=== PATIENT | female | born 1940 | race Caucasian/White ===

== ENCOUNTER 2017-04-02 11:56 | Inpatient (IN) | payer OTHER ==
--- NOTE | 2017-04-02 12:21 | PDOC ---
History of Present Illness - General Chief Complaint: Shortness of Breath Stated Complaint: NEAR SYNCOPE, BLOOD PRESSURE PROBLEM Time Seen by Provider: 04/02/17 12:21 - History of Present Illness Initial Comments: 04/02/17 13:55 Ms. Martinez is a 76 yo female w/ pmh of HTN and HLD who presents complaining of a 2 month history of shortness of breath on exertion. Per daughter who is with her this has been an ongoing process for which she was recently discharged from [facility]. Her daughter brought her to [facility] for a "second opinion. " The patient denies chest pain, headache and dizziness. Denies fever, chills, nausea, vomit, diarrhea and constipation. Denies dysuria, frequency, urgency and hematuria. Allergies: NKDA Past History - Past Medical History Allergies/Adverse Reactions: Allergies Allergy/AdvReac Type Severity Reaction Status Date / Time No Known Allergies Allergy Verified 04/02/17 11:57 Home Medications: Ambulatory Orders Carvedilol 12.5 mg PO DAILY 04/02/17 Furosemide [Lasix] 40 mg PO DAILY 04/02/17 Lisinopril [Zestril] 2.5 mg PO DAILY 04/02/17 Methimazole 5 mg PO DAILY 04/02/17 Mirtazapine [Remeron -] 15 mg PO DAILY 04/02/17 Omeprazole 20 mg PO DAILY 04/02/17 COPD: No HTN: Yes Thyroid Disease: Yes (HYPER) - Suicide/Smoking/Psychosocial Hx Smoking History: Never smoked Have you smoked in the past 12 months: No Information on smoking cessation initiated: No Hx Alcohol Use: No Drug/Substance Use Hx: No Substance Use Type: None *Physical Exam - Vital Signs Last Vital Signs Temp Pulse Resp BP Pulse Ox 98.3 F 86 18 145/102 100 04/02/17 11:57 04/02/17 11:57 04/02/17 11:57 04/02/17 11:57 04/02/17 11:57 ED Treatment Course - LABORATORY CBC & Chemistry Diagram: 04/02/17 13:05 04/02/17 13:05 Medical Decision Making - Medical Decision Making 04/02/17 17:05 Ms. Martinez is a 76 yo female w/ pmh as described who presents for evaluation for dyspnea on exertion. EKG noted afib - patient unaware of cardiac status; will admit for tele -obs presumed new onset afib evaluation. 04/02/17 17:11 CXR noted clear on wet read by radiology. Lovenox given for inpatient anticoagulation. 04/02/17 17:39 Patient admitted for further evaluation to hospitalist team. 04/02/17 18:47 *DC/Admit/Observation/Transfer Diagnosis at time of Disposition: New onset a-fib - Discharge Dispostion Admit: Yes - Referrals - Patient Instructions - Post Discharge Activity
--- NOTE | 2017-04-02 12:40 | PDOC ---
Attending Attestation - Resident Resident Name: OrionjyotsnamaximRavi - ED Attending Attestation I have performed the following: I have examined & evaluated the patient, The case was reviewed & discussed with the resident, I agree w/resident's findings & plan, Exceptions are as noted - HPI HPI: 04/02/17 13:58 76y F hx of htn, hl, thyroid disease, ?dementia, asthma, presents with complaint of sob. was recently dc from [facility] for sob. Daugther states she found her mother hunched over the wall with sob and brought her here for evaulation. The patient denies any complaints currently however normather states her history is not reliable. she denesi any sob, cp, palpitations, n/v, dizziness/lightheadedness Pts exam is unremakable General: no acute distress, smiling Cardiac: irregularly irregular Pulm: CTA w/o wheezing abd:soft nontender Ext: no edema pts labs reviewed noted for mild elevated BNP EKG noted for afib that is rate controlled concern for new onset afib, pt is not aware of that diagnosis and is not taking any blood thinners. pt will be given lovenox 1mg/kg will admit pt for obs and cards consult - Physicial Exam PE: 04/04/17 11:13 see above - Medical Decision Making 04/04/17 11:13 see above Heart Score/ECG Review - ECG Impressions Comment:: Interpretation of EKG dated 04/02/17 15:19 rate of 71 irregularly irregular poor r wave progression nonspecific st changes imp: afib no prior ekg for comparison
[2017-04-02 13:19] LABS: BASO % 0.5 % (0-2.0); EOS % 1.7 % (0-4.5); HEMATOCRIT 34.1 % (32.4-45.2); HEMOGLOBIN 10.9 GM/dL (10.7-15.3); LYMPH % 20.7 % (8-40); MCH 27.1 pg (25.7-33.7); MEAN CELL VOLUME 84.5 fl (80-96); MEAN PLT VOLUME 9.3 fl (7.5-11.1); MONO % 7.9 % (3.8-10.2); NEUT % 69.2 % (42.8-82.8); PLATELET COUNT 208 K/MM3 (134-434); RBC 4.03 M/mm3 (3.60-5.2); WHITE BLOOD COUNT 6.3 K/mm3 (4.0-10.0)
[2017-04-02 13:28] LABS: INR 1.44 (0.82-1.09); PROTHROMBIN TIME (PATIENT) 16.3 SEC (9.98-11.88)
[2017-04-02 13:53] LABS: ALBUMIN 3.5 g/dl (3.4-5.0); ANION GAP 6 (8-16); BLOOD UREA NITROGEN 21 mg/dL (7-18); CHLORIDE 106 mmol/L (98-107); CO2 30 mmol/L (21-32); CREATININE 0.8 mg/dL (0.55-1.02); GLUCOSE,RANDOM 127 mg/dL (74-106); POTASSIUM 3.6 mmol/L (3.5-5.1); SGOT/AST 37 U/L (15-37); SGPT/ALT 52 U/L (12-78); SODIUM 142 mmol/L (136-145)
[2017-04-02 13:57] LABS: ALK PHOS 161 U/L (45-117); BILIRUBIN,TOTAL 0.6 mg/dL (0.2-1.0); N-TERMINAL BNP 3882.39 pg/ml (5-450); TOT PROT 7.4 g/dl (6.4-8.2)
--- NOTE | 2017-04-02 16:29 | EKG ---
Test Reason : Blood Pressure : / mmHG Vent. Rate : 071 BPM Atrial Rate : 394 BPM P-R Int : 000 ms QRS Dur : 074 ms QT Int : 410 ms P-R-T Axes : 000 017 -11 degrees QTc Int : 445 ms POOR DATA QUALITY, INTERPRETATION MAY BE ADVERSELY AFFECTED ATRIAL FIBRILLATION POOR R WAVE PROGRESSION ABNORMAL ECG NO PREVIOUS ECGS AVAILABLE Confirmed by MD Jacob, Prabhakar ([id number]) on 04/02/2017 4:29:26 PM Referred By: Confirmed By:Prabhakar James MD
[2017-04-02] MEDS ORDERED: ENOXAPARIN NA (PORCINE) 60 MG/0.6 ML DISP.SYRIN SQ SCH (17:15)
[2017-04-02] MEDS ORDERED: ENOXAPARIN NA (PORCINE) 60 MG/0.6 ML DISP.SYRIN SQ ONE (17:29)
--- NOTE | 2017-04-02 19:11 | HP ---
CHIEF COMPLAINT: shortness of breath PCP: HISTORY OF PRESENT ILLNESS: Patient is a 76 year old female with a significant past medical history of hypertension, hyperlipidemia, thyroid disease, dementia (as per pt daughter), anxiety and asthma. Daughter was present and provided the history. As per daughter, patient was complaining of worsening shortness of breath with physical activity. Patient was recently discharged from [facility] for shortness of breath but daughter feels that her mother continues to be short of breath and has not improved. She brings her to [facility] for a "second opinion". Daughter mike reports that her mother's gait is unsteady and she lives alone. Her mother is a fall risk and is non compliant with her home medications. On exam, patient was anxious, asking to go home. Does not want to stay in the hospital unless daughter stays with her. She denies any chest pain or shortness of breath. Her gait was unsteady when going from a sitting to standing position. ER course was notable for: (1) BNP 3880 (2) EKG noted for atril fib that is rate controlled in 80s, patient is not on any anticoagulation (3) given Lovenox 60mg x 1 in ED Recent Travel: PAST MEDICAL HISTORY: hypertension, hyperlipidemia, thyroid disease, dementia ( as per pt daughter), anxiety and asthma PAST SURGICAL HISTORY: Social History: Smoking: denies Alcohol: denies Drugs: denies Family History: Allergies No Known Allergies Allergy (Verified 04/02/17 11:57) HOME MEDICATIONS: Home Medications Medication Instructions Recorded Carvedilol 12.5 mg PO DAILY 04/02/17 Furosemide [Lasix] 40 mg PO DAILY 04/02/17 Lisinopril [Zestril] 2.5 mg PO DAILY 04/02/17 Methimazole 5 mg PO DAILY 04/02/17 Mirtazapine [Remeron -] 15 mg PO DAILY 04/02/17 Omeprazole 20 mg PO DAILY 04/02/17 REVIEW OF SYSTEMS CONSTITUTIONAL: Absent: fever, chills, diaphoresis, generalized weakness, malaise, loss of appetite, weight change HEENT: Absent: rhinorrhea, nasal congestion, throat pain, throat swelling, difficulty swallowing, mouth swelling, ear pain, eye pain, visual changes GASTROINTESTINAL: Absent: abdominal pain, abdominal distension, nausea, vomiting, diarrhea, constipation, melena, hematochezia GENITOURINARY: Absent: dysuria, frequency, urgency, hesitancy, hematuria, flank pain, genital pain MUSCULOSKELETAL: Absent: myalgia, arthralgia, joint swelling, back pain, neck pain SKIN: Absent: rash, itching, pallor HEMATOLOGIC/IMMUNOLOGIC: Absent: easy bleeding, easy bruising, lymphadenopathy, frequent infections ENDOCRINE: Absent: unexplained weight gain, unexplained weight loss, heat intolerance, cold intolerance NEUROLOGIC: Absent: headache, focal weakness or paresthesias, dizziness, unsteady gait, seizure, mental status changes, bladder or bowel incontinence PHYSICAL EXAMINATION Vital Signs - 24 hr 04/02/17 11:57 Temperature 98.3 F Pulse Rate 86 Respiratory 18 Rate Blood Pressure 145/102 O2 Sat by Pulse 100 Oximetry (%) GENERAL: Awake, alert, and fully oriented, in no acute distress. HEAD: Normal with no signs of trauma. EYES: Pupils equal, round and reactive to light, extraocular movements intact, sclera anicteric, conjunctiva clear. No lid lag. EARS, NOSE, THROAT: Ears normal, nares patent, oropharynx clear without exudates. Moist mucous membranes. NECK: Normal range of motion, supple without lymphadenopathy, JVD, or masses. LUNGS: Diminished breath sounds bilaterally HEART: afib, rate controlled 80s ABDOMEN: Soft, nontender, not distended, normoactive bowel sounds, no guarding, no rebound, no masses. No hepatomegaly or splenomegaly. MUSCULOSKELETAL: Normal range of motion at all joints. No bony deformities or tenderness. No CVA tenderness. UPPER EXTREMITIES: 2+ pulses, warm, well-perfused. No cyanosis. No clubbing. No peripheral edema. LOWER EXTREMITIES: trace edema on bilateral lower extremities NEUROLOGICAL: Unsteady gait PSYCHIATRIC: anxious, periods of agitation SKIN: Warm, dry, normal turgor, no rashes or lesions noted, normal capillary refill. Laboratory Results - last 24 hr 04/02/17 04/02/17 04/02/17 13:05 13:05 13:05 WBC 6.3 RBC 4.03 Hgb 10.9 Hct 34.1 MCV 84.5 MCH 27.1 MCHC 32.0 RDW 15.0 Plt Count 208 MPV 9.3 Neutrophils % 69.2 Lymphocytes % 20.7 Monocytes % 7.9 Eosinophils % 1.7 Basophils % 0.5 PT with INR 16.30 H INR 1.44 H Sodium 142 Potassium 3.6 Chloride 106 Carbon Dioxide 30 Anion Gap 6 L BUN 21 H Creatinine 0.8 Creat Clearance w eGFR > 60 Random Glucose 127 H Calcium 8.0 L Magnesium 2.0 Total Bilirubin 0.6 AST 37 ALT 52 Alkaline Phosphatase 161 H Creatine Kinase 68 Troponin I < 0.02 B-Natriuretic Peptide 3882.39 H Total Protein 7.4 Albumin 3.5 Blood Type Antibody Screen 04/02/17 13:05 WBC RBC Hgb Hct MCV MCH MCHC RDW Plt Count MPV Neutrophils % Lymphocytes % Monocytes % Eosinophils % Basophils % PT with INR INR Sodium Potassium Chloride Carbon Dioxide Anion Gap BUN Creatinine Creat Clearance w eGFR Random Glucose Calcium Magnesium Total Bilirubin AST ALT Alkaline Phosphatase Creatine Kinase Troponin I B-Natriuretic Peptide Total Protein Albumin Blood Type O POSITIVE Antibody Screen Negative ASSESSMENT/PLAN: Patient is a 76 year old female with a significant past medical history of hypertension, hyperlipidemia, thyroid disease, dementia (as per pt daughter), anxiety and asthma. Daughter was present and provided the history. As per daughter, patient was complaining of worsening shortness of breath with physical activity. Patient was recently discharged from [facility] for shortness of breath but daughter feels that her mother continues to be short of breath and has not improved. She brings her to [facility] for a "second opinion". Daughter mike reports that her mother's gait is unsteady and she lives alone. Her mother is a fall risk and is non compliant with her home medications. On exam, patient was anxious, asking to go home. Does not want to stay in the hospital unless daughter stays with her. She denies any chest pain or shortness of breath. Her gait was unsteady when going from a sitting to standing position. Cardiology Atrial fib, rate controlled On Coreq 12.5 BID Will anticoagulate with full dose Lovenox, with close watch on patient's ambulatory status, further anticoag as per cardiology Will consult PT No prior medical records to compare, recently reported to be at [facility] On Lasix Trop negative x 2 Echo ordered Telemonitoring Hypertension, chronic Elevated On coreq 12.5mg BID On Lisinopril Hyperlipidemia, chronic lipid panel in a.m. Endocrine Thyroid disease TSH ordered Pulmonary: Asthma, chronic In no acute exacerbation Albuterol prn Physical therapy to assess ambulatory status. SW to help coordinate safe discharge F.E.N. Fluids: tolerating PO Electrolytes: monitor Nutrition: low sodium Prophylaxis: DVT: lovenox GI: Protonix Disposition: full code Visit type - Emergency Visit Emergency Visit: Yes ED Registration Date: 04/02/17 Care time: The patient presented to the Emergency Department on the above date and was hospitalized for further evaluation of their emergent condition. - New Patient This patient is new to me today: Yes Date on this admission: 04/02/17 - Critical Care Critical Care patient: No
[2017-04-02] MEDS ORDERED: CARVEDILOL 12.5 MG TABLET (FP) PO ONE (19:52)
[2017-04-02] MEDS ORDERED: ALBUTEROL SO4 0.083% IH SOL 2.5 MG/3 ML VIAL.NEB. NEB PRN (19:56)
[2017-04-02] MEDS ORDERED: FUROSEMIDE 20 MG TABLET (FP) PO ONE (20:00)
--- NOTE | 2017-04-02 20:25 | CON.CARD ---
Consult Consult Specialty:: cardiology Reason for Consultation:: AF; CHF - History of Present Illness Chief Complaint: shortness of breath History of Present Illness: 76y woman (b. [place]), with PMHx hx of htn, hyperlipidemia, thyroid disease , ?dementia, "asthma" (never smoked), presents with complaint of sob. was recently dc from [facility] for sob. Daugther states she found her mother hunched over a wall with sob, and was brought her here for evaluation. The patient denies any complaints; currently, however, daughter states mother's history is not reliable. Pt's EKG in ER showed atrial fibrillation. Pt says that for several months shes has felt increasingly dyspneic on exertion ; this has been limiting her ability to walk; she at times also has mild chest pressure on exertion that may take minutes to subside.. She denies hx MS; ? never had a cardiac stress test; no hx coronary angiogram. - History Source History Provided By: Patient, Family Member, Medical Record - Past Medical History Cardio/Vascular: Yes: AFIB, CHF, HTN Reproductive: Yes: Postmenopausal ...: No Psych: Yes: Anxiety - Alcohol/Substance Use Hx Alcohol Use: No - Smoking History Smoking history: Never smoked Have you smoked in the past 12 months: No Home Medications - Allergies Allergies/Adverse Reactions: Allergies Allergy/AdvReac Type Severity Reaction Status Date / Time No Known Allergies Allergy Verified 04/02/17 11:57 - Home Medications Home Medications: Ambulatory Orders Carvedilol 12.5 mg PO DAILY 04/02/17 Furosemide [Lasix] 40 mg PO DAILY 04/02/17 Lisinopril [Zestril] 2.5 mg PO DAILY 04/02/17 Methimazole 5 mg PO DAILY 04/02/17 Mirtazapine [Remeron -] 15 mg PO DAILY 04/02/17 Omeprazole 20 mg PO DAILY 04/02/17 Vital Signs: Vital Signs Temperature 98.3 F 04/02/17 11:57 Pulse Rate 86 04/02/17 11:57 Respiratory Rate 18 04/02/17 11:57 Blood Pressure 145/102 04/02/17 11:57 O2 Sat by Pulse Oximetry (%) 100 04/02/17 11:57 - Other Data Labs, Other Data: CBC, BMP 04/02/17 13:05 04/02/17 13:05 INR, PTT INR 1.44 (0.82-1.09) H 04/02/17 13:05 Troponin, BNP 04/02/17 13:05 Troponin I < 0.02 B-Natriuretic Peptide 3882.39 H Troponin, BNP 04/02/17 13:05 Troponin I < 0.02 B-Natriuretic Peptide 3882.39 H Problem List - Problems (1) Hyperlipidemia Code(s): E78.5 - HYPERLIPIDEMIA, UNSPECIFIED (2) Shortness of breath Code(s): R06.02 - SHORTNESS OF BREATH (3) New onset a-fib Assessment/Plan: start carvedilol; give bid for 24 hour coverage. On lovenox 1 mg/kg BW bid. ECHO for LVEF, chamber sizes, valve status. TSH WNL. F/u BUN/Cr, electrolytes, Is and Os, daily weight. EKG in am. Code(s): I48.91 - UNSPECIFIED ATRIAL FIBRILLATION (4) Acute on chronic systolic CHF (congestive heart failure), NYHA class 2 Assessment/Plan: BNP elevated; +JVP. ECHO for LVEF, wall motion and thickness, chamber sizes, wall motion, valve status. If systolic dysfunction, use beta blockers (unless true bronchial asthma; pt says she has not been on an asthma pump for years, and was only recenty started on one when she began having dyspnea on exertion; nonsmoker). TSH. Daily weight, Is and Os, BUN/Cr, electrolytes. Code(s): I50.23 - ACUTE ON CHRONIC SYSTOLIC (CONGESTIVE) HEART FAILURE
[2017-04-03 03:10] LABS: URINE APPEARANCE SLCLOUDY; URINE BILIRUBIN NEGATIVE (NEGATIVE); URINE BLOOD NEGATIVE (NEGATIVE); URINE COLOR YELLOW; URINE GLUCOSE (UA) NEGATIVE (NEGATIVE); URINE KETONE NEGATIVE (NEGATIVE); URINE NITRITE NEGATIVE (NEGATIVE); URINE PROTEIN NEGATIVE (NEGATIVE); URINE UROBILINOGEN NEGATIVE mg/dL (0.2-1.0)
[2017-04-03] MEDS ORDERED: FUROSEMIDE 40 MG TABLET (FP) ONE (03:15)
[2017-04-03] MEDS ORDERED: CARVEDILOL 12.5 MG TABLET (FP) ONE (03:15)
[2017-04-03] MEDS: CARVEDILOL 12.5 MG TABLET (FP) PO SCH ×3 (03:18→21:37)
[2017-04-03 03:22] LABS: URINE LEUK ESTERASE 1+ (NEGATIVE)
[2017-04-03 03:28] LABS: EPI CELLS FEW /HPF (FEW); URINE BACTERIA MANY /hpf (NONE SEEN); URINE HYALINE CAST 14 /lpf; URINE MUCUS MANY
[2017-04-03 08:38] LABS: BASO % 0.4 % (0-2.0); EOS % 1.9 % (0-4.5); HEMATOCRIT 30.9 % (32.4-45.2); LYMPH % 16.6 % (8-40); MCH 27.3 pg (25.7-33.7); MCHC 32.3 g/dl (32.0-36.0); MEAN CELL VOLUME 84.6 fl (80-96); MEAN PLT VOLUME 9.2 fl (7.5-11.1); MONO % 6.6 % (3.8-10.2); NEUT % 74.5 % (42.8-82.8); PLATELET COUNT 193 K/MM3 (134-434); RBC 3.65 M/mm3 (3.60-5.2); RDW 15.6 % (11.6-15.6); WHITE BLOOD COUNT 7.4 K/mm3 (4.0-10.0)
[2017-04-03 09:30] LABS: CHLORIDE 105 mmol/L (98-107); SODIUM 142 mmol/L (136-145)
[2017-04-03 09:37] LABS: ALK PHOS 132 U/L (45-117); ANION GAP 7 (8-16); BILIRUBIN,TOTAL 0.6 mg/dL (0.2-1.0); BLOOD UREA NITROGEN 17 mg/dL (7-18); CALCIUM 7.4 mg/dL (8.5-10.1); CO2 30 mmol/L (21-32); CREATININE 0.8 mg/dL (0.55-1.02); GLUCOSE,RANDOM 137 mg/dL (74-106); MAGNESIUM 1.7 mg/dL (1.8-2.4); SGOT/AST 24 U/L (15-37); SGPT/ALT 41 U/L (12-78); TOT PROT 6.3 g/dl (6.4-8.2)
[2017-04-03 09:43] LABS: CHOLESTEROL 124 mg/dL (50-200); HDL CHOLESTEROL 52 mg/dL (40-60); LDL CHOLESTEROL (ONLY SJRH) 67 mg/dL (5-100); TRIGLYCERIDES 70 mg/dL (35-160)
[2017-04-03] MEDS ORDERED: CARVEDILOL 12.5 MG TABLET (FP) PO SCH (10:00)
--- NOTE | 2017-04-03 10:08 | PN ---
Progress Note, Physician History of Present Illness: 76y F hx of htn, hyperlipidemia, thyroid disease, ?dementia, asthma, presents with complaint of sob. [facility] Daugther states she found her mother hunched over the wall with sob and brought her here for evaluation. The patient denies any complaints currently however daughter states mother's history is not reliable. Pt's EKG in ER showed atrial fibrillation. - Current Medication List Current Medications: Active Medications Albuterol Sulfate (Ventolin 0.083% Nebulizer Soln -) 1 amp NEB Q8H PRN PRN Reason: SHORT OF BREATH/WHEEZING Carvedilol (Coreg -) 12.5 mg PO BID HIPOLITO Last Admin: 04/03/17 03:18 Dose: 12.5 mg Enoxaparin Sodium (Lovenox -) 60 mg SQ BID HIPOLITO Furosemide (Lasix -) 40 mg PO DAILY HIPOLITO Lisinopril (Prinivil) 2.5 mg PO DAILY HIPOLITO Methimazole (Tapazole -) 5 mg PO DAILY HIPOLITO Mirtazapine (Remeron -) 15 mg PO HS HIPOLITO Pantoprazole Sodium (Protonix -) 20 mg PO DAILY HIPOLITO - Objective Vital Signs: Vital Signs Temperature 97.9 F 04/03/17 08:59 Pulse Rate 82 04/03/17 08:59 Respiratory Rate 20 04/03/17 08:59 Blood Pressure 142/68 04/03/17 08:59 O2 Sat by Pulse Oximetry (%) 92 L 04/03/17 06:39 Eyes: Yes: WNL, Conjunctiva Clear, EOM Intact HENT: Yes: WNL, Atraumatic, Normocephalic Neck: Yes: WNL, Supple, Trachea Midline Cardiovascular: Yes: Pulse Irregular Respiratory: Yes: WNL, Regular, CTA Bilaterally Gastrointestinal: Yes: WNL, Normal Bowel Sounds Genitourinary: Yes: WNL Musculoskeletal: Yes: WNL Extremities: Yes: WNL Edema: No Integumentary: Yes: WNL Neurological: Yes: WNL, Alert, Oriented ...Motor Strength: WNL Psychiatric: Yes: WNL Labs: CBC, BMP 04/03/17 08:15 04/03/17 08:15 INR, PTT INR 1.44 (0.82-1.09) H 04/02/17 13:05 Assessment/Plan Problems (1) Hyperlipidemia Code(s): E78.5 - HYPERLIPIDEMIA, UNSPECIFIED (2) Shortness of breath Code(s): R06.02 - SHORTNESS OF BREATH (3) New onset a-fib Assessment/Plan: start carvedilol; give bid for 24 hour coverage. On lovenox 1 mg/kg BW bid. ECHO for LVEF, chamber sizes, valve status. TSH WNL. F/u BUN/Cr, electrolytes, Is and Os, daily weight. EKG in am. Code(s): I48.91 - UNSPECIFIED ATRIAL FIBRILLATION
[2017-04-03] MEDS: ENOXAPARIN NA (PORCINE) 60 MG/0.6 ML DISP.SYRIN SQ SCH ×2 (10:26→21:37)
[2017-04-03] MEDS: PANTOPRAZOLE 20 MG TABLET (FP) PO SCH (10:26)
[2017-04-03] MEDS: METHIMAZOLE 5 MG TABLET (FP) PO SCH (10:26)
[2017-04-03] MEDS: FUROSEMIDE 40 MG TABLET (FP) PO SCH (10:26)
[2017-04-03] MEDS: LISINOPRIL 5 MG TABLET (FP) PO SCH (10:27)
[2017-04-03 11:28] VITALS: BMI 29.2
--- NOTE | 2017-04-03 16:04 | PN ---
Physical Exam: SUBJECTIVE: Patient seen and examined in the ED. She has no acute complaint, dose not appear sob, eating lunch no issues. OBJECTIVE: Vital Signs Period Temp Pulse Resp BP Sys/[place] Pulse Ox Last 24 Hr 97.9 F-98.6 F 82-104 17-20 135-154/68-118 92-99 PE Neuro: alert, awake, oriented to self, daughter Pulm: CTAB CV: s2 s2 irregular rhythm Abd: s nt nd +bs Ext: + 1 pitting edema b/l Laboratory Results - last 24 hr 04/02/17 04/02/17 04/03/17 13:05 20:48 02:30 WBC RBC Hgb Hct MCV MCH MCHC RDW Plt Count MPV Neutrophils % Lymphocytes % Monocytes % Eosinophils % Basophils % Sodium Potassium Chloride Carbon Dioxide Anion Gap BUN Creatinine Creat Clearance w eGFR Random Glucose Calcium Magnesium Total Bilirubin AST ALT Alkaline Phosphatase Troponin I < 0.02 Total Protein Albumin Triglycerides Cholesterol Total LDL Cholesterol HDL Cholesterol TSH 0.53 Urine Color Yellow Urine Appearance Slcloudy Urine pH 5.0 Ur Specific [place] 1.023 Urine Protein Negative Urine Glucose (UA) Negative Urine Ketones Negative Urine Blood Negative Urine Nitrite Negative Urine Bilirubin Negative Urine Urobilinogen Negative Ur Leukocyte Esterase 1+ H Urine WBC (Auto) 23 Urine RBC (Auto) 3 Ur Epithelial Cells Few Urine Bacteria Many Hyaline Casts 14 Urine Mucus Many 04/03/17 04/03/17 04/03/17 08:15 08:15 08:15 WBC 7.4 RBC 3.65 Hgb 10.0 L Hct 30.9 L MCV 84.6 MCH 27.3 MCHC 32.3 RDW 15.6 Plt Count 193 MPV 9.2 Neutrophils % 74.5 Lymphocytes % 16.6 Monocytes % 6.6 Eosinophils % 1.9 Basophils % 0.4 Sodium 142 Potassium 3.0 L Chloride 105 Carbon Dioxide 30 Anion Gap 7 L BUN 17 Creatinine 0.8 Creat Clearance w eGFR > 60 Random Glucose 137 H Calcium 7.4 L Magnesium 1.7 L Total Bilirubin 0.6 AST 24 ALT 41 Alkaline Phosphatase 132 H Troponin I Total Protein 6.3 L Albumin 3.0 L Triglycerides 70 Cholesterol 124 Total LDL Cholesterol 67 HDL Cholesterol 52 TSH Urine Color Urine Appearance Urine pH Ur Specific [place] Urine Protein Urine Glucose (UA) Urine Ketones Urine Blood Urine Nitrite Urine Bilirubin Urine Urobilinogen Ur Leukocyte Esterase Urine WBC (Auto) Urine RBC (Auto) Ur Epithelial Cells Urine Bacteria Hyaline Casts Urine Mucus Active Medications Generic Name Dose Route Start Last Admin Trade Name Freq PRN Reason Stop Dose Admin Albuterol Sulfate 1 amp 04/02/17 19:56 Ventolin 0.083% Nebulizer Soln - NEB Q8H PRN SHORT OF BREATH/WHEEZING Carvedilol 12.5 mg 04/02/17 22:00 04/03/17 10:26 Coreg - PO 12.5 mg BID HIPOLITO Administration Enoxaparin Sodium 60 mg 04/03/17 10:00 04/03/17 10:26 Lovenox - SQ 60 mg BID HIPOLITO Administration Furosemide 40 mg 04/03/17 10:00 04/03/17 10:26 Lasix - PO 40 mg DAILY HIPOLITO Administration Lisinopril 2.5 mg 04/03/17 10:00 04/03/17 10:27 Prinivil PO 2.5 mg DAILY HIPOLITO Administration Methimazole 5 mg 04/03/17 10:00 04/03/17 10:26 Tapazole - PO 5 mg DAILY HIPOLITO Administration Mirtazapine 15 mg 04/03/17 22:00 Remeron - PO HS HIPOLITO Pantoprazole Sodium 20 mg 04/03/17 10:00 04/03/17 10:26 Protonix - PO 20 mg DAILY HIPOLITO Administration Assessment: 76 year old female with pmhx of HTN, HLD, thyroid disease, dementia (as per pt daughter), anxiety and asthma admitted with worsening sob on exertion. Plan: 1. New onset A fib - Coreg 12.5mg BID - Continue tele monitoring - Lovenox 60mg BID, transition to oral per cardiology 2. Acute Systolic HF/Pulm HTN - ECHO: lv mildly dilated, lvsf mod reduced, severe TR, RVSP 40-50mmhg, mod global hypokinesis of LV, severe MR - Continue BB, JOVANNA, diuretic as listed - Consider aldactone - Defer to cardiology 3. UTI - Asymptomatic bacturia, repeat UA, send Urine cx - Start ceftriaxone 4. HTN - Lasix 40mg daily - Lisinopril 2.5mg daily 5. HLD - Lipid panel noted 6. Hypokalemia - Replete 40meq after mg infusion 7. Hypomagnesemia - Replete 1gm mg x1 8. Hyperthyroidism - TSH wnl - Methimazole 5mg daily 9. Dementia/insomnia - Remeron 15mg HS 10. DVT: on lovenox Visit type - Emergency Visit Emergency Visit: Yes ED Registration Date: 04/02/17 Care time: The patient presented to the Emergency Department on the above date and was hospitalized for further evaluation of their emergent condition. - New Patient This patient is new to me today: Yes Date on this admission: 04/03/17 - Critical Care Critical Care patient: No
[2017-04-03] MEDS ORDERED: MAGNESIUM SULF 50% (8.12 MEQ/2 ML-1 GM VIAL) IVPB ONE (16:06)
[2017-04-03] MEDS ORDERED: MAGNESIUM 1GM/D5W - 1 GM/100 ML IVPB IVPB ONE (16:15)
[2017-04-03] MEDS ORDERED: POTASSIUM CHLORIDE ORAL LIQUID 20 MEQ/15 ML PO ONE (16:15)
[2017-04-03] MEDS ORDERED: cefTRIAXone 1 GM/50 ML BAG (PRE-DOCKED) IVPB SCH (16:30)
[2017-04-03] MEDS ORDERED: MAGNESIUM SULF 50% (8.12 MEQ/2 ML-1 GM VIAL) ONE (16:45)
[2017-04-03] MEDS ORDERED: cefTRIAXone SODIUM 1 GM VIAL ONE (16:46)
[2017-04-03] MEDS ORDERED: POTASSIUM CHLORIDE ORAL LIQUID 20 MEQ/15 ML ONE (16:46)
[2017-04-03] MEDS: CEFTRIAXONE 1 G/50 ML PREMIX 50 ML IVPB SCH (18:44)
[2017-04-03 20:27] LABS: URINE APPEARANCE SLCLOUDY; URINE BILIRUBIN NEGATIVE (NEGATIVE); URINE BLOOD NEGATIVE (NEGATIVE); URINE COLOR YELLOW; URINE GLUCOSE (UA) NEGATIVE (NEGATIVE); URINE KETONE NEGATIVE (NEGATIVE); URINE LEUK ESTERASE TRACE (NEGATIVE); URINE NITRITE NEGATIVE (NEGATIVE); URINE PROTEIN NEGATIVE (NEGATIVE); URINE UROBILINOGEN NEGATIVE mg/dL (0.2-1.0)
[2017-04-03 20:32] LABS: EPI CELLS RARE /HPF (FEW); URINE BACTERIA RARE /hpf (NONE SEEN); URINE HYALINE CAST 20 /lpf; URINE MUCUS RARE
[2017-04-03] MEDS: MIRTAZAPINE 15 MG TABLET (FP) PO SCH (21:37)
[2017-04-04] MEDS: CARVEDILOL 12.5 MG TABLET (FP) PO SCH ×2 (09:17→21:51)
[2017-04-04] MEDS: LISINOPRIL 5 MG TABLET (FP) PO SCH (09:17)
[2017-04-04] MEDS: ENOXAPARIN NA (PORCINE) 60 MG/0.6 ML DISP.SYRIN SQ SCH (09:17)
[2017-04-04] MEDS: FUROSEMIDE 40 MG TABLET (FP) PO SCH (09:17)
[2017-04-04] MEDS: CEFTRIAXONE 1 G/50 ML PREMIX 50 ML IVPB SCH (09:18)
[2017-04-04] MEDS: METHIMAZOLE 5 MG TABLET (FP) PO SCH (09:18)
[2017-04-04] MEDS: PANTOPRAZOLE 20 MG TABLET (FP) PO SCH (09:18)
[2017-04-04 09:21] LABS: BASO % 0.5 % (0-2.0); EOS % 1.9 % (0-4.5); LYMPH % 27.4 % (8-40); MCH 27.3 pg (25.7-33.7); MCHC 32.2 g/dl (32.0-36.0); MEAN CELL VOLUME 84.8 fl (80-96); MEAN PLT VOLUME 9.6 fl (7.5-11.1); MONO % 7.9 % (3.8-10.2); NEUT % 62.3 % (42.8-82.8); PLATELET COUNT 194 K/MM3 (134-434); RBC 3.65 M/mm3 (3.60-5.2); RDW 15.8 % (11.6-15.6)
[2017-04-04 09:45] LABS: ANION GAP 5 (8-16); BLOOD UREA NITROGEN 20 mg/dL (7-18); CALCIUM 7.7 mg/dL (8.5-10.1); CHLORIDE 107 mmol/L (98-107); CO2 30 mmol/L (21-32); CREATININE 0.9 mg/dL (0.55-1.02); GLUCOSE,RANDOM 104 mg/dL (74-106); MAGNESIUM 2.1 mg/dL (1.8-2.4); POTASSIUM 3.4 mmol/L (3.5-5.1); SODIUM 142 mmol/L (136-145)
--- NOTE | 2017-04-04 09:49 | PN ---
Progress Note, Physician Chief Complaint: Pt alert; denies chest pain; still easily fatigued and dyspneic on mild exertion. Knows the month, but not the year. History of Present Illness: 76y woman (b. [place]),with PMHx of htn, hyperlipidemia, thyroid disease, ? dementia, asthma, presents with complaint of sob. was recently dc from [facility] for sob. Daugther states she found her mother hunched over the wall with sob and brought her here for evaluation. The patient denies any complaints currently however daughter states mother's history is not reliable. Pt's EKG in ER showed atrial fibrillation. - Current Medication List Current Medications: Active Medications Albuterol Sulfate (Ventolin 0.083% Nebulizer Soln -) 1 amp NEB Q8H PRN PRN Reason: SHORT OF BREATH/WHEEZING Carvedilol (Coreg -) 12.5 mg PO BID [facility] Last Admin: 04/04/17 09:17 Dose: 12.5 mg Enoxaparin Sodium (Lovenox -) 60 mg SQ BID [facility] Last Admin: 04/04/17 09:17 Dose: 60 mg Furosemide (Lasix -) 40 mg PO DAILY [facility] Last Admin: 04/04/17 09:17 Dose: 40 mg CEFTRIAXONE 1 G/50 ML PREMIX (Ceftriaxone 1 Gm-D5w Bag) 50 mls @ 100 mls/hr IVPB DAILY [facility] Last Admin: 04/04/17 09:18 Dose: 100 mls/hr Lisinopril (Prinivil) 2.5 mg PO DAILY [facility] Last Admin: 04/04/17 09:17 Dose: 2.5 mg Methimazole (Tapazole -) 5 mg PO DAILY [facility] Last Admin: 04/04/17 09:18 Dose: 5 mg Mirtazapine (Remeron -) 15 mg PO HS [facility] Last Admin: 04/03/17 21:37 Dose: 15 mg Pantoprazole Sodium (Protonix -) 20 mg PO DAILY [facility] Last Admin: 04/04/17 09:18 Dose: 20 mg - Objective Vital Signs: Vital Signs Temperature 98.1 F 04/04/17 02:00 Pulse Rate 98 H 04/04/17 02:00 Respiratory Rate 18 04/04/17 02:00 Blood Pressure 119/79 04/04/17 02:00 O2 Sat by Pulse Oximetry (%) 97 04/03/17 20:18 Constitutional: Yes: Calm Eyes: Yes: WNL HENT: Yes: WNL Neck: Yes: WNL Cardiovascular: Yes: Pulse Irregular Respiratory: Yes: WNL Gastrointestinal: Yes: Soft ...Rectal Exam: Yes: Deferred Genitourinary: No: Anuria Musculoskeletal: Yes: WNL Extremities: Yes: WNL Edema: Yes Edema: LLE: Trace, RLE: Trace Peripheral Pulses WNL: Yes Integumentary: Yes: WNL Neurological: Yes: Confusion Psychiatric: Yes: Other (?dementia) Labs: CBC, BMP 04/04/17 08:55 INR, PTT INR 1.44 (0.82-1.09) H 04/02/17 13:05 Problem List - Problems (1) Hyperlipidemia Code(s): E78.5 - HYPERLIPIDEMIA, UNSPECIFIED (2) Shortness of breath Code(s): R06.02 - SHORTNESS OF BREATH (3) New onset a-fib Assessment/Plan: ECHO: moderately reduced LVEF; midly dilated LV and LA; moderatey severe TR and pulmonary HTN; severe MR. On carvedilol bid. Sop Lovenox; start rivaroxaban (once daily will be easier for compliance; there may be issues at home that would make the bid doing of Apixaban difficult to comply with). Code(s): I48.91 - UNSPECIFIED ATRIAL FIBRILLATION (4) Acute on chronic systolic CHF (congestive heart failure), NYHA class 2 Assessment/Plan: BNP elevated; +JVP. ECHO :(see under AF). On carvedilol. On lisinopril; increase dose as tolerated. Start spironolacotoee; f/u BUn/Cr, electorlytes (K mildly reduced today). F/u Is and Os, daily weight. TSH WNL. Stress MIBI (perhaps tomorrow, if BP and HR are stable on new regimen). Code(s): I50.23 - ACUTE ON CHRONIC SYSTOLIC (CONGESTIVE) HEART FAILURE
[2017-04-04] MEDS: SPIRONOLACTONE 25 MG TABLET (FP) PO SCH (11:21)
--- NOTE | 2017-04-04 11:52 | EKG ---
Test Reason : Blood Pressure : / mmHG Vent. Rate : 096 BPM Atrial Rate : 076 BPM P-R Int : 000 ms QRS Dur : 080 ms QT Int : 354 ms P-R-T Axes : 000 009 -12 degrees QTc Int : 447 ms ATRIAL FIBRILLATION ABNORMAL ECG WHEN COMPARED WITH ECG OF 02-APR-2017 15:19, CRITERIA FOR ANTERIOR INFARCT ARE NO LONGER PRESENT Confirmed by RAMIRO CEJA MD ([id number]) on 04/04/2017 11:52:16 AM Referred By: Confirmed By:RAMIRO CEJA MD
--- NOTE | 2017-04-04 16:39 | PN ---
Physical Exam: SUBJECTIVE: Patient seen and examined.. She feels well, no resp complaints, wants to go home . + BM OBJECTIVE: Vital Signs Period Temp Pulse Resp BP Sys/[place] Pulse Ox Last 24 Hr 98.1 F-98.8 F 90-114 18-18 119-138/65-88 97-97 PE Neuro: alert, awake, cn 2-12intact Pulm: CTAB CV: s2 s2 irregular rhythm Abd: s nt nd +bs Ext: + 1 pitting edema b/l Laboratory Results - last 24 hr 04/03/17 04/03/17 04/04/17 19:45 20:58 05:54 WBC RBC Hgb Hct MCV MCH MCHC RDW Plt Count MPV Neutrophils % Lymphocytes % Monocytes % Eosinophils % Basophils % Sodium Potassium Chloride Carbon Dioxide Anion Gap BUN Creatinine POC Glucometer 141 89 Random Glucose Calcium Magnesium Urine Color Yellow Urine Appearance Slcloudy Urine pH 5.0 Ur Specific [place] 1.011 Urine Protein Negative Urine Glucose (UA) Negative Urine Ketones Negative Urine Blood Negative Urine Nitrite Negative Urine Bilirubin Negative Urine Urobilinogen Negative Ur Leukocyte Esterase Trace Urine WBC (Auto) 3 Urine RBC (Auto) 1 Ur Epithelial Cells Rare Urine Bacteria Rare Hyaline Casts 20 Urine Mucus Rare 04/04/17 04/04/17 04/04/17 08:55 08:55 11:23 WBC 6.0 RBC 3.65 Hgb 10.0 L Hct 31.0 L MCV 84.8 MCH 27.3 MCHC 32.2 RDW 15.8 H Plt Count 194 MPV 9.6 Neutrophils % 62.3 Lymphocytes % 27.4 D Monocytes % 7.9 Eosinophils % 1.9 Basophils % 0.5 Sodium 142 Potassium 3.4 L Chloride 107 Carbon Dioxide 30 Anion Gap 5 L BUN 20 H Creatinine 0.9 POC Glucometer 102 Random Glucose 104 Calcium 7.7 L Magnesium 2.1 Urine Color Urine Appearance Urine pH Ur Specific [place] Urine Protein Urine Glucose (UA) Urine Ketones Urine Blood Urine Nitrite Urine Bilirubin Urine Urobilinogen Ur Leukocyte Esterase Urine WBC (Auto) Urine RBC (Auto) Ur Epithelial Cells Urine Bacteria Hyaline Casts Urine Mucus Active Medications Generic Name Dose Route Start Last Admin Trade Name Freq PRN Reason Stop Dose Admin Albuterol Sulfate 1 amp 04/02/17 19:56 Ventolin 0.083% Nebulizer Soln - NEB Q8H PRN SHORT OF BREATH/WHEEZING Carvedilol 12.5 mg 04/02/17 22:00 04/04/17 09:17 Coreg - PO 12.5 mg BID [facility] Administration Furosemide 40 mg 04/03/17 10:00 04/04/17 09:17 Lasix - PO 40 mg DAILY [facility] Administration CEFTRIAXONE 1 G/50 ML PREMIX 50 mls @ 100 mls/hr 04/03/17 16:30 04/04/17 09: 18 Ceftriaxone 1 Gm-D5w Bag IVPB 100 mls/hr DAILY [facility] Administration Lisinopril 2.5 mg 04/03/17 10:00 04/04/17 09:17 Prinivil PO 2.5 mg DAILY [facility] Administration Methimazole 5 mg 04/03/17 10:00 04/04/17 09:18 Tapazole - PO 5 mg DAILY [facility] Administration Mirtazapine 15 mg 04/03/17 22:00 04/03/17 21:37 Remeron - PO 15 mg HS [facility] Administration Pantoprazole Sodium 20 mg 04/03/17 10:00 04/04/17 09:18 Protonix - PO 20 mg DAILY [facility] Administration Rivaroxaban 20 mg 04/04/17 18:00 Xarelto - PO DAILY@1800 [facility] Spironolactone 25 mg 04/04/17 10:15 04/04/17 11:21 Aldactone - PO 25 mg DAILY [facility] Administration Imaging: - ECHO: lv mildly dilated, lvsf mod reduced, severe TR, RVSP 40-50mmhg, mod global hypokinesis of LV, severe MR Assessment: 76 year old female with pmhx of HTN, HLD, thyroid disease, dementia (as per pt daughter), anxiety and asthma admitted with worsening sob on exertion. Plan: 1. New onset A fib - Coreg 12.5mg BID - Stop lovenox - Start xarelto 20mg @1800 2. Acute Systolic HF/Pulm HTN - Start spironolactone 25mg daily - Continue BB, JOVANNA, diuretic as listed - Stress test in AM 3. UTI - UA improved, cx pending - Continue ceftriaxone (day2) 4. HTN - Lasix 40mg daily - Lisinopril 2.5mg daily 5. HLD - Lipid panel noted 6. Hypokalemia - Replete 40meq x1 7. Hypomagnesemia - Resolved 8. Hyperthyroidism - TSH wnl - Methimazole 5mg daily 9. Dementia/insomnia - Remeron 15mg HS 10. DVT - on AC Visit type - Emergency Visit Emergency Visit: Yes ED Registration Date: 04/04/17 Care time: The patient presented to the Emergency Department on the above date and was hospitalized for further evaluation of their emergent condition. - New Patient This patient is new to me today: No - Critical Care Critical Care patient: No
[2017-04-04] MEDS ORDERED: POTASSIUM CHLORIDE ORAL LIQUID 20 MEQ/15 ML PO ONE (17:00)
[2017-04-04] MEDS: RIVAROXABAN 20 MG TABLET PO SCH (17:48)
[2017-04-04] MEDS ORDERED: PT OWN MED DRAWER 7, Y5N ONE (17:50)
[2017-04-04] MEDS: MIRTAZAPINE 15 MG TABLET (FP) PO SCH (21:51)
[2017-04-04] MEDS ORDERED: APIXABAN 5 MG TABLET PO SCH (22:00)
[2017-04-05] MEDS: CARVEDILOL 12.5 MG TABLET (FP) PO SCH ×3 (06:44→21:51)
[2017-04-05 08:08] LABS: CHLORIDE 106 mmol/L (98-107); POTASSIUM 3.7 mmol/L (3.5-5.1); SODIUM 142 mmol/L (136-145)
[2017-04-05 08:14] LABS: ANION GAP 10 (8-16); BLOOD UREA NITROGEN 18 mg/dL (7-18); CO2 26 mmol/L (21-32); CREATININE 0.7 mg/dL (0.55-1.02); GLUCOSE,RANDOM 89 mg/dL (74-106)
[2017-04-05] MEDS: LISINOPRIL 5 MG TABLET (FP) PO SCH (09:20)
[2017-04-05] MEDS: FUROSEMIDE 40 MG TABLET (FP) PO SCH (09:21)
[2017-04-05] MEDS: PANTOPRAZOLE 20 MG TABLET (FP) PO SCH (09:21)
[2017-04-05] MEDS: METHIMAZOLE 5 MG TABLET (FP) PO SCH (09:21)
[2017-04-05] MEDS: SPIRONOLACTONE 25 MG TABLET (FP) PO SCH (09:21)
[2017-04-05] MEDS: CEFTRIAXONE 1 G/50 ML PREMIX 50 ML IVPB SCH (09:22)
--- NOTE | 2017-04-05 13:13 | PN ---
Physical Exam: SUBJECTIVE: Patient seen and examined. No acute issues reported. OBJECTIVE: Vital Signs Period Temp Pulse Resp BP Sys/[place] Pulse Ox Last 24 Hr 98.0 F-98.6 F 83-98 18-20 120-158/72-106 96-96 PE Neuro: alert, awake, cn 2-12intact Pulm: CTAB CV: s2 s2 irregular rhythm Abd: s nt nd +bs Ext: + 1 pitting edema b/l Laboratory Results - last 24 hr 04/03/17 04/04/17 04/04/17 08:15 16:30 23:38 Sodium Potassium Chloride Carbon Dioxide Anion Gap BUN Creatinine POC Glucometer 116 100 Random Glucose Hemoglobin A1c % 5.5 Calcium 04/05/17 04/05/17 05:44 06:10 Sodium 142 Potassium 3.7 Chloride 106 Carbon Dioxide 26 Anion Gap 10 BUN 18 Creatinine 0.7 POC Glucometer 106 Random Glucose 89 Hemoglobin A1c % Calcium 8.0 L Active Medications Generic Name Dose Route Start Last Admin Trade Name Freq PRN Reason Stop Dose Admin Albuterol Sulfate 1 amp 04/02/17 19:56 Ventolin 0.083% Nebulizer Soln - NEB Q8H PRN SHORT OF BREATH/WHEEZING Carvedilol 12.5 mg 04/02/17 22:00 04/05/17 06:44 Coreg - PO 12.5 mg BID [facility] Administration Furosemide 40 mg 04/03/17 10:00 04/05/17 09:21 Lasix - PO 40 mg DAILY [facility] Administration CEFTRIAXONE 1 G/50 ML PREMIX 50 mls @ 100 mls/hr 04/03/17 16:30 04/05/17 09: 22 Ceftriaxone 1 Gm-D5w Bag IVPB 100 mls/hr DAILY [facility] Administration Lisinopril 2.5 mg 04/03/17 10:00 04/05/17 09:20 Prinivil PO 2.5 mg DAILY [facility] Administration Methimazole 5 mg 04/03/17 10:00 04/05/17 09:21 Tapazole - PO 5 mg DAILY [facility] Administration Mirtazapine 15 mg 04/03/17 22:00 04/04/17 21:51 Remeron - PO 15 mg HS [facility] Administration Pantoprazole Sodium 20 mg 04/03/17 10:00 04/05/17 09:21 Protonix - PO 20 mg DAILY [facility] Administration Rivaroxaban 20 mg 04/04/17 18:00 04/04/17 17:48 Xarelto - PO 20 mg DAILY@1800 [facility] Administration Spironolactone 25 mg 04/04/17 10:15 04/05/17 09:21 Aldactone - PO 25 mg DAILY [facility] Administration Imaging: - ECHO: lv mildly dilated, lvsf mod reduced, severe TR, RVSP 40-50mmhg, mod global hypokinesis of LV, severe MR Assessment: 76 year old female with pmhx of HTN, HLD, thyroid disease, dementia (as per pt daughter), anxiety and asthma admitted with worsening sob on exertion. Plan: 1. New onset A fib - Coreg 12.5mg BID - Started xarelto 20mg @1800 2. Acute Systolic HF/Pulm HTN - Started spironolactone 25mg daily - Continue BB, JOVANNA, diuretic as listed - Stress test today 3. UTI - Urine cx pre booker nlfb, awaiting final cx, pt has recent hospitalization at [place] - Continue ceftriaxone (day 3) 4. HTN - Lasix 40mg daily - Lisinopril 2.5mg daily 5. HLD - Lipid panel noted 6. Hypokalemia - Resolved 7. Hypomagnesemia - Resolved 8. Hyperthyroidism - TSH wnl - Methimazole 5mg daily 9. Dementia/insomnia - Remeron 15mg HS 10. DVT - on AC Visit type - Emergency Visit Emergency Visit: Yes ED Registration Date: 04/04/17 Care time: The patient presented to the Emergency Department on the above date and was hospitalized for further evaluation of their emergent condition. - New Patient This patient is new to me today: No - Critical Care Critical Care patient: No
--- NOTE | 2017-04-05 16:18 | PN ---
Progress Note, Physician Chief Complaint: Pt alert; denies chest pain. Sitting in chair; ambulates in room. Her is visiting. Pt thinks her nurse is a visitor coming to live with her. History of Present Illness: 76y woman (b. [place]),with PMHx of htn, hyperlipidemia, thyroid disease, ? dementia, asthma, presents with complaint of sob. was recently dc from [facility] for sob. Daugther states she found her mother hunched over the wall with sob and brought her here for evaluation. The patient denies any complaints currently however daughter states mother's history is not reliable. Pt's EKG in ER showed atrial fibrillation. - Current Medication List Current Medications: Active Medications Albuterol Sulfate (Ventolin 0.083% Nebulizer Soln -) 1 amp NEB Q8H PRN PRN Reason: SHORT OF BREATH/WHEEZING Carvedilol (Coreg -) 12.5 mg PO BID [facility] Last Admin: 04/05/17 06:44 Dose: 12.5 mg Furosemide (Lasix -) 40 mg PO DAILY [facility] Last Admin: 04/05/17 09:21 Dose: 40 mg CEFTRIAXONE 1 G/50 ML PREMIX (Ceftriaxone 1 Gm-D5w Bag) 50 mls @ 100 mls/hr IVPB DAILY [facility] Last Admin: 04/05/17 09:22 Dose: 100 mls/hr Lisinopril (Prinivil) 2.5 mg PO DAILY [facility] Last Admin: 04/05/17 09:20 Dose: 2.5 mg Methimazole (Tapazole -) 5 mg PO DAILY [facility] Last Admin: 04/05/17 09:21 Dose: 5 mg Mirtazapine (Remeron -) 15 mg PO HS [facility] Last Admin: 04/04/17 21:51 Dose: 15 mg Pantoprazole Sodium (Protonix -) 20 mg PO DAILY [facility] Last Admin: 04/05/17 09:21 Dose: 20 mg Rivaroxaban (Xarelto -) 20 mg PO DAILY@1800 [facility] Last Admin: 04/04/17 17:48 Dose: 20 mg Spironolactone (Aldactone -) 25 mg PO DAILY [facility] Last Admin: 04/05/17 09:21 Dose: 25 mg - Objective Vital Signs: Vital Signs Temperature 98.9 F 04/05/17 14:59 Pulse Rate 124 H 04/05/17 14:59 Respiratory Rate 16 04/05/17 14:59 Blood Pressure 123/91 04/05/17 14:59 O2 Sat by Pulse Oximetry (%) 96 04/05/17 09:00 Constitutional: Yes: Calm Eyes: Yes: WNL HENT: Yes: WNL Neck: Yes: WNL Cardiovascular: Yes: Pulse Irregular, S1 (varies in intensity) Respiratory: Yes: WNL Gastrointestinal: Yes: Soft ...Rectal Exam: Yes: Deferred Genitourinary: Yes: Anuria Breast(s): Yes: WNL Musculoskeletal: Yes: Muscle Weakness Extremities: Yes: Cool Edema: No Peripheral Pulses WNL: Yes Psychiatric: Yes: Other (dementia) Labs: CBC, BMP 04/04/17 08:55 04/05/17 06:10 INR, PTT INR 1.44 (0.82-1.09) H 04/02/17 13:05 Problem List - Problems (1) Hyperlipidemia Code(s): E78.5 - HYPERLIPIDEMIA, UNSPECIFIED (2) Shortness of breath Code(s): R06.02 - SHORTNESS OF BREATH (3) New onset a-fib Assessment/Plan: ECHO: moderately reduced LVEF; midly dilated LV and LA; moderatey severe TR and pulmonary HTN; severe MR. On carvedilol. Started rivaroxaban. Code(s): I48.91 - UNSPECIFIED ATRIAL FIBRILLATION (4) Acute on chronic systolic CHF (congestive heart failure), NYHA class 2 Assessment/Plan: BNP elevated; +JVP. ECHO :(see under AF). On carvedilol. On lisinopril; increase dose as tolerated. Started spironolacotoee; f/u BUn/Cr, electrolytes. F/u Is and Os, daily weight. TSH WNL. Consider stress MIBI (may be done as outpatient), but first consider pt's overall physical and mental health, including dementia. Code(s): I50.23 - ACUTE ON CHRONIC SYSTOLIC (CONGESTIVE) HEART FAILURE
[2017-04-05] MEDS: RIVAROXABAN 20 MG TABLET PO SCH (17:40)
[2017-04-05] MEDS ORDERED: LORazepam 0.5 MG TABLET PO ONE (20:15)
[2017-04-05] MEDS: MIRTAZAPINE 15 MG TABLET (FP) PO SCH ×2 (20:35→21:51)
[2017-04-06] MEDS ORDERED: PT OWN MED DRAWER 7, Y5N ONE ×2 (09:25→14:52)
[2017-04-06] MEDS: FUROSEMIDE 40 MG TABLET (FP) PO SCH (09:28)
[2017-04-06] MEDS: SPIRONOLACTONE 25 MG TABLET (FP) PO SCH (09:28)
[2017-04-06] MEDS: METHIMAZOLE 5 MG TABLET (FP) PO SCH (09:28)
[2017-04-06] MEDS: CARVEDILOL 12.5 MG TABLET (FP) PO SCH (09:28)
[2017-04-06] MEDS: CEFTRIAXONE 1 G/50 ML PREMIX 50 ML IVPB SCH ×2 (09:28→09:31)
[2017-04-06] MEDS: LISINOPRIL 5 MG TABLET (FP) PO SCH (09:28)
[2017-04-06] MEDS: PANTOPRAZOLE 20 MG TABLET (FP) PO SCH (09:28)
--- NOTE | 2017-04-06 12:14 | EKG ---
Test Reason : Blood Pressure : / mmHG Vent. Rate : 101 BPM Atrial Rate : 117 BPM P-R Int : 000 ms QRS Dur : 074 ms QT Int : 328 ms P-R-T Axes : 000 011 -20 degrees QTc Int : 425 ms ATRIAL FIBRILLATION WITH RAPID VENTRICULAR RESPONSE NONSPECIFIC T WAVE ABNORMALITY ABNORMAL ECG WHEN COMPARED WITH ECG OF 03-APR-2017 10:48, NO SIGNIFICANT CHANGE WAS FOUND Confirmed by RAMIRO CEJA MD ([id number]) on 04/06/2017 12:14:01 PM Referred By: Keya MCDANIEL Confirmed By:RAMIRO CEJA MD
--- NOTE | 2017-04-06 12:21 | PN ---
Progress Note, Physician History of Present Illness: seen and examined today in [facility]. walked in hallway this am. wants to go home. no complaints. no overnight events. - Current Medication List Current Medications: Active Medications Albuterol Sulfate (Ventolin 0.083% Nebulizer Soln -) 1 amp NEB Q8H PRN PRN Reason: SHORT OF BREATH/WHEEZING Carvedilol (Coreg -) 12.5 mg PO BID [facility] Last Admin: 04/06/17 09:28 Dose: 12.5 mg Furosemide (Lasix -) 40 mg PO DAILY [facility] Last Admin: 04/06/17 09:28 Dose: 40 mg CEFTRIAXONE 1 G/50 ML PREMIX (Ceftriaxone 1 Gm-D5w Bag) 50 mls @ 100 mls/hr IVPB DAILY [facility] Last Admin: 04/06/17 09:31 Dose: Not Given Lisinopril (Prinivil) 2.5 mg PO DAILY [facility] Last Admin: 04/06/17 09:28 Dose: 2.5 mg Methimazole (Tapazole -) 5 mg PO DAILY [facility] Last Admin: 04/06/17 09:28 Dose: 5 mg Mirtazapine (Remeron -) 15 mg PO HS [facility] Last Admin: 04/05/17 21:51 Dose: Not Given Pantoprazole Sodium (Protonix -) 20 mg PO DAILY [facility] Last Admin: 04/06/17 09:28 Dose: 20 mg Rivaroxaban (Xarelto -) 20 mg PO DAILY@1800 [facility] Last Admin: 04/05/17 17:40 Dose: 20 mg Spironolactone (Aldactone -) 25 mg PO DAILY [facility] Last Admin: 04/06/17 09:28 Dose: 25 mg - Objective Vital Signs: Vital Signs Temperature 98.4 F 04/06/17 06:00 Pulse Rate 74 04/06/17 06:00 Respiratory Rate 20 04/06/17 06:00 Blood Pressure 124/76 04/06/17 06:00 O2 Sat by Pulse Oximetry (%) 97 04/05/17 21:00 Constitutional: Yes: No Distress, Calm Eyes: Yes: Conjunctiva Clear, EOM Intact, PERRL HENT: Yes: Atraumatic, Normocephalic Neck: Yes: Supple, Trachea Midline Cardiovascular: Yes: Regular Rate and Rhythm, S1, S2. No: Bradycardia, Tachycardia, Pulse Irregular, Bruit, JVD, Gallop, Murmur, Rub, S3, S4, Varicosities Respiratory: Yes: Regular, CTA Bilaterally. No: Rales, Rhonchi, Wheezes Gastrointestinal: Yes: Normal Bowel Sounds, Soft. No: Distention, Tenderness Edema: No Peripheral Pulses WNL: Yes Peripheral Pulses: Left Doralis Pedis: 2+, Right Dorsalis Pedis: 2+ Neurological: Yes: Alert, Oriented Psychiatric: Yes: Alert, Oriented Labs: CBC, BMP 04/04/17 08:55 04/05/17 06:10 INR, PTT INR 1.44 (0.82-1.09) H 04/02/17 13:05 - ....Imaging Chest X-ray: Report Reviewed, Image Reviewed EKG: Report Reviewed, Image Reviewed Other: Report Reviewed, Image Reviewed (tele-currently not on, pt refusing, up until last night Afib with episodes of RVR) Assessment/Plan 76y woman (b. [place]),with PMHx of htn, hyperlipidemia, thyroid disease, dementia, asthma, presents with complaint of sob. was recently dc from [facility] for sob. Daugther states she found her mother hunched over the wall with sob and brought her here for evaluation. The patient denies any complaints currently however daughter states mother's history is not reliable. Pt's EKG in ER showed atrial fibrillation. New onset a-fib with episodes of RVR -refusing tele since last night -asymptomatic -HR wnl this am ECHO: moderately reduced LVEF; midly dilated LV and LA; moderatey severe TR and pulmonary HTN; severe MR. On carvedilol. cont rivaroxaban. -if HR remains adeuquately controlled this am she can likely f/up as outpatient with Dr. Feliciano for further work up Acute on chronic systolic CHF (congestive heart failure), NYHA class 2 BNP elevated; ECHO :(see under AF). On carvedilol. On lisinopril; increase dose as tolerated. Started spironolacotoee; f/u BUn/Cr, electrolytes. F/u Is and Os, daily weight. TSH WNL. Consider stress MIBI (may be done as outpatient), but first consider pt's overall physical and mental health, including dementia.
[2017-04-06 14:32] VITALS: BP 135/92; PULSE 78; TEMP 97.9
[2017-04-06] MEDS: RIVAROXABAN 20 MG TABLET PO SCH (16:38)
== END 2017-04-06 16:38 | disposition home or self-care (01) | DRG 308 ==
LOC: JER 11:56 → JERBED 20:02 → J4W 04-03 18:34 → OBSVTOIN 04-04 15:05
PROVIDERS: ADMIT Internal Medicine; ATTEND Nurse Practitioner Acute Care
DX: I48.91 Unspecified atrial fibrillation (principal); I50.21 Acute systolic (congestive) heart failure; N39.0 Urinary tract infection, site not specified; E78.5 Hyperlipidemia, unspecified; J45.909 Unspecified asthma, uncomplicated; F03.90 Unspecified dementia, unspecified severity, without behavioral disturbance, psychotic disturbance, mood disturbance, and anxiety; F41.8 Other specified anxiety disorders; I11.0 Hypertensive heart disease with heart failure; E87.6 Hypokalemia; E83.42 Hypomagnesemia; E05.80 Other thyrotoxicosis without thyrotoxic crisis or storm; G47.09 Other insomnia; I27.20 Pulmonary hypertension, unspecified
CPT/HCPCS: 36415; 71046-TC-FY; 80048; 80053; 80061; 81003; 81015; 82550; 82962; 83036; 83721; 83735; 83880; 84443; 84484; 85025; 85610; 86850; 86900; 86901; 87086; 87186; 93005; 93010; 93306-TC; 97116-GP; 97161-GP; 99283-25; G0378